=== PATIENT | female | born 1980 | race Caucasian/White ===

== ENCOUNTER 2017-11-16 10:32 | Emergency (ER) | payer OTHER ==
[~2017-11-16] VITALS: Ht 162.6 cm; Wt 104.3 kg
[~2017-11-16 10:32] MED LIST: BIRTH CONTROL; CIPR500 PO; CYCL10 PO; FAMO20 PO; IBUP800 PO; LOPE2C; METPRE4DP PO; Norco 5-325 Ta1 EACH PO; OMEP20ER PO; RANI150 PO; SUCR1 PO; SUMA25 PO; Sprintec1 EACH PO
[2017-11-16 11:45] LABS: Source, Urine Voided
[2017-11-16 11:51] LABS: Bilirubin, Urine Neg (Neg); Blood, Urine 3+ (Neg); Glucose Qualitative, Urine Neg (Neg); Ketones, Urine Neg (Neg); Leukocyte Esterase, Urine Neg (Neg); Nitrite, Urine Pos (Neg); Protein, Urine Neg (Neg); Specific Gravity, Urine 1.015 (1.003-1.022); Urobilinogen, Urine NORM (Normal)
[2017-11-16 11:54] LABS: BASOPHILS ABSOLUTE AUTO 0.05 K/mm3 (0.00-0.23); BASOPHILS PERCENT AUTO 1 % (0-2); EOSINOPHILS ABSOLUTE AUTO 0.08 K/mm3 (0.00-0.68); EOSINOPHILS PERCENT AUTO 1 % (0-6); Hematocrit 43.8 % (33.0-51.0); Hemoglobin 13.9 g/dL (11.5-16.0); IMMATURE GRAN ABSOLUTE AUTO 0.03 K/mm3 (0.00-0.10); IMMATURE GRAN PERCENT AUTO 0 % (0-1); LYMPHOCYTES ABSOLUTE AUTO 1.63 K/mm3 (0.84-5.20); LYMPHOCYTES PERCENT AUTO 20 % (21-46); MONOCYTES ABSOLUTE AUTO 0.42 K/mm3 (0.16-1.47); MONOCYTES PERCENT AUTO 5 % (4-13); Mean Corpuscular HGB 27.4 pg (26.0-34.0); Mean Corpuscular HGB Conc 31.7 g/dL (31.5-36.5); Mean Corpuscular Volume 86 fL (80-100); Mean Platelet Volume 10.5 fL (9.1-12.4); NEUTROPHILS ABSOLUTE AUTO 5.88 K/mm3 (1.96-9.15); NEUTROPHILS PERCENT AUTO 73 % (41-73); Platelet Count 260 K/mm3 (150-400); RDW Coefficient Variation 13.7 % (11.7-14.2); RDW Standard Deviation 43.1 fL (35.1-46.3); Red Blood Cell Count 5.07 M/mm3 (3.80-5.20); White Blood Cell Count 8.09 K/mm3 (4.00-11.30)
[2017-11-16 11:54] LABS: Appearance, Urine Clear (Clear); Color, Urine Yellow (P-Yellow)
[2017-11-16 12:01] LABS: Squamous Epithelial Cells Mod /hpf (Few); White Blood Cells, Urine 0-2 /hpf (0-5)
[2017-11-16 12:02] LABS: Bacteria Few /hpf
[2017-11-16 12:10] LABS: Alanine Aminotransfer (ALT/SGP 21 U/L (12-78); Albumin, Blood 3.2 g/dL (3.4-5.0); Albumin/Globulin Ratio 0.8 (0.8-1.8); Alk Phos 80 U/L (50-136); Anion Gap 4 mmol/L (6-16); Aspartate Aminotrans (AST/SGOT 13 U/L (12-37); Bilirubin, Total 0.4 mg/dL (0.1-1.0); Blood Urea Nitrogen 13 mg/dL (8-24); Bun/Creatinine Ratio 18.6 (12.0-20.0); CO2, Blood 25 mmol/L (21-32); Calcium, Blood 8.9 mg/dL (8.5-10.1); Chloride, Blood 108 mmol/L (98-108); Globulin, Blood 4.2 g/dL (2.2-4.0); Glomerular Filtration Rate >60 (60-); Glucose, Blood 89 mg/dL (70-99); Potassium, Blood 4.1 mmol/L (3.5-5.5); Sodium, Blood 137 mmol/L (136-145); Total Protein, Blood 7.4 g/dL (6.4-8.2)
[2017-11-16 14:36] LABS: Source, Urine Voided
[2017-11-16 14:52] LABS: Appearance, Urine Clear (Clear); Bilirubin, Urine Neg (Neg); Blood, Urine 2+ (Neg); Color, Urine Yellow (P-Yellow); Glucose Qualitative, Urine Neg (Neg); Ketones, Urine Neg (Neg); Leukocyte Esterase, Urine Neg (Neg); Nitrite, Urine Neg (Neg); Protein, Urine Neg (Neg); Specific Gravity, Urine 1.015 (1.003-1.022); Urobilinogen, Urine NORM (Normal)
[2017-11-16 14:58] LABS: Bacteria Rare /hpf; Red Blood Cells, Urine 0-2 /hpf (0-2); Squamous Epithelial Cells Few /hpf (Few); White Blood Cells, Urine 0-2 /hpf (0-5)
[2017-11-16] MEDS ORDERED: LIDO700A20 TOP (15:36)
[2017-11-16] MEDS ORDERED: Percocet 5-3251 EACH PO (15:36)
[2017-11-16] MEDS ORDERED: IBUP800 PO (15:36)
[2017-11-16] MEDS ORDERED: Pyridium100 MG PO (15:44)
== END 2017-11-16 15:57 | disposition home or self-care (01) ==
LOC: ER 10:32
PROVIDERS: Emergency Medicine; Physician Assistant
DX: R10.9 Unspecified abdominal pain (principal); Z88.5 Allergy status to narcotic agent; Z79.899 Other long term (current) drug therapy; K21.9 Gastro-esophageal reflux disease without esophagitis; Z87.891 Personal history of nicotine dependence
CPT/HCPCS: 36415; 76770; 76830; 76856; 80053; 81001; 81025; 83690; 85025; 87086; 99284

== ENCOUNTER → 2022-09-15 | Outpatient (CLI) | payer OTHER ==
[~2022-09-15] MED LIST changes: +LIDO700A20 TOP; +Percocet 5-3251 EACH PO; +Pyridium100 MG PO
[2022-09-16 15:12] LABS: HPV 16 Negative (Negative); HPV 18 Negative (Negative); HPV OTHER HR TYPES Negative (Negative)
== END | disposition home or self-care (01) ==
LOC: LAB SHORT 13:15 → LAB 13:15
PROVIDERS: Nurse Practitioner Family
DX: Z01.419 Encounter for gynecological examination (general) (routine) without abnormal findings (principal)
CPT/HCPCS: 87624; G0145

== ENCOUNTER 2023-09-02 09:42 | Day surgery (SDC) | payer OTHER ==
[~2023-09-02] VITALS: Ht 162.6 cm; Wt 95.5 kg
[~2023-09-02 09:42] MED LIST changes: +LOPERAMIDE212 PO; +Lactated Ringer's 1,000 ML IV ONE
[2023-09-02] MEDS ORDERED: UBRELVY100 MG (10:04)
[2023-09-02] MEDS ORDERED: Lactated Ringer's 1,000 ML IV ONE (10:41)
[2023-09-02] MEDS ORDERED: FentaNYL Citrate 50 MCG/ML 2 ML Injection ONE (11:16)
[2023-09-02] MEDS ORDERED: Midazolam HCL 1 MG/ML 5MLVIAL ONE (11:16)
[2023-09-02] MEDS ORDERED: propofoL 50 ML IV ONE (11:17)
[2023-09-02 12:07] VITALS: BP 136/71
[2023-09-03] MEDS ORDERED: DOCU100 PO (05:21)
[2023-09-03] MEDS ORDERED: BISA10S PR (05:21)
== END 2023-09-02 12:11 | disposition home or self-care (01) ==
LOC: ORSCSDS 09:42
PROVIDERS: Internal Medicine Gastroenterology
PROC: 0DBL8ZX Excision of Transverse Colon, Via Natural or Artificial Opening Endoscopic, Diagnostic (ICD-10-PCS; principal; 2023-09-02 11:15)
DX: R19.7 Diarrhea, unspecified (principal); Z86.010 Personal history of colon polyps; D12.3 Benign neoplasm of transverse colon; Z87.891 Personal history of nicotine dependence; E66.9 Obesity, unspecified; Z68.39 Body mass index [BMI] 39.0-39.9, adult
CPT/HCPCS: 88305; J2250; J2704; J3010; J7120

== ENCOUNTER 2023-09-03 03:48 | Emergency (ER) | payer OTHER ==
[~2023-09-03] VITALS: Ht 162.6 cm; Wt 97.5 kg
[~2023-09-03 03:48] MED LIST changes: -Lactated Ringer's 1,000 ML IV ONE; +UBRELVY100 MG
[2023-09-03] MEDS ORDERED: Magnesium Hydroxide Conc 10 ML UDC PO ONE (04:20)
[2023-09-03 05:00] VITALS: BP 114/65
[2023-09-03] MEDS ORDERED: BISA10S PR (05:21)
[2023-09-03] MEDS ORDERED: DOCU100 PO (05:21)
== END 2023-09-03 05:28 | disposition home or self-care (01) ==
LOC: ER 03:48
DX: R14.0 Abdominal distension (gaseous) (principal); K59.00 Constipation, unspecified; Z88.5 Allergy status to narcotic agent
CPT/HCPCS: 74022; 99283-25; A9270

== ENCOUNTER → 2024-12-13 | Outpatient (CLI) | payer OTHER ==
[~2024-12-13] MED LIST changes: +BISA10S PR; +DOCU100 PO
== END ==
LOC: LAB SHORT 12:17 → LAB 12:17
DX: Z13.29 Encounter for screening for other suspected endocrine disorder (principal); E55.9 Vitamin D deficiency, unspecified
CPT/HCPCS: 82306; 84443